=== PATIENT | female | born 1980 | race African-American/Black ===

== ENCOUNTER → 2018-08-06 | Outpatient (CLI) | payer BC, OTHER ==
[~2018-08-06] MED LIST: CIPROFLOXACIN500 M1 PO; IBUPROFEN 200200 M1 PO; ULTRAM 50MG TAB50 MG PO; ZOFRAN ODT4 MG PO
== END ==
LOC: RAD 03:07
DX: Z12.31 Encounter for screening mammogram for malignant neoplasm of breast (principal)

== ENCOUNTER → 2019-01-17 | Outpatient (CLI) | payer OTHER | LOC: CAT 09:30 | DX: Z13.6 Encounter for screening for cardiovascular disorders (principal); I25.10 Atherosclerotic heart disease of native coronary artery without angina pectoris; E78.00 Pure hypercholesterolemia, unspecified ==

== ENCOUNTER → 2019-04-07 | Outpatient (CLI) | payer BC, OTHER | LOC: ULTRA 10:53 | DX: R92.8 Other abnormal and inconclusive findings on diagnostic imaging of breast (principal) ==

== ENCOUNTER → 2019-08-22 | Outpatient (CLI) | payer BC, OTHER | LOC: RAD 02:28 | DX: Z12.31 Encounter for screening mammogram for malignant neoplasm of breast (principal) ==

== ENCOUNTER → 2019-08-26 | Outpatient (CLI) | payer BC, OTHER | LOC: RAD 10:37 | DX: N63.10 Unspecified lump in the right breast, unspecified quadrant (principal); R92.2 Inconclusive mammogram ==

== ENCOUNTER → 2020-05-11 | Outpatient (CLI) | payer BC, OTHER | LOC: RAD 13:08 → ULTRA 13:08 | PROVIDERS: ATTEND Internal Medicine | DX: R92.2 Inconclusive mammogram (principal) ==